=== PATIENT | female | born 1990 | race Caucasian/White ===

== ENCOUNTER 2023-10-23 19:39 | Emergency (ER) | payer MEDICAID ==
[~2023-10-23] VITALS: Ht 165.1 cm; Wt 85.0 kg
[2023-10-23 19:45] VITALS: BP 134/88; PULSE 72; RESP 16; TEMP 98.1; O2SAT 99
[2023-10-23] MEDS ORDERED: ONDANSETRON 4MG ODT PO ONE (20:15)
[2023-10-23] MEDS ORDERED: ACETAMINOPHEN 325MG TABLET PO ONE (20:15)
[2023-10-23 20:51] LABS: BASOPHILS % 0.4 % (0.0-2.0); EOSINOPHILS % 2.9 % (0.0-5.0); HEMATOCRIT. 41.5 % (36.0-48.0); HEMOGLOBIN. 13.9 g/dL (12.0-16.0); LYMPHOCYTES % 16.6 % (20.0-50.0); MEAN CORPUSCULAR HEMOGLOBIN 28.8 pg (28.0-32.0); MEAN CORPUSCULAR HGB CONC 33.3 g/dL (31.0-37.0); MEAN CORPUSCULAR VOLUME 86.4 fL (81.0-99.0); MEAN PLATELET VOLUME 9.3 fl (7.4-10.4); MONOCYTES % 4.8 % (2.0-8.0); NEUTROPHILS % 75.3 % (40.0-76.0); PLATELET 269 x1000/uL (130-400); RED BLOOD CELL COUNT 4.81 mill/uL (4.2-5.4); RED CELL DISTRIBUTION WIDTH 13.1 % (11.6-14.6); WHITE BLOOD COUNT 11.9 x1000/uL (4.5-11.0)
[2023-10-23 20:57] LABS: CHLORIDE 107 mEq/L (98-107); SODIUM 140 mEq/L (136-145)
[2023-10-23 20:59] LABS: CARBON DIOXIDE 26 mEq/L (21-32)
[2023-10-23 21:00] LABS: CALCIUM 9.1 mg/dL (8.7-10.4)
[2023-10-23 21:04] LABS: CREATININE 0.7 mg/dL (0.6-1.0); GLUCOSE 96 mg/dL (70-105)
[2023-10-23 21:05] LABS: ALANINE AMINOTRANSFERASE 20 IU/L (10-49); UREA NITROGEN BLOOD 8 mg/dL (9-23)
[2023-10-23 21:06] LABS: ALBUMIN 4.7 g/dL (3.2-4.8); ASPARTATE AMINOTRANSFERASE 19 IU/L (<34)
[2023-10-23 21:07] LABS: BILIRUBIN DIRECT 0.1 mg/dL (<=3.0); BILIRUBIN TOTAL 0.4 mg/dL (0.1-1.0); PROTEIN TOTAL 7.7 g/dL (6.0-8.3)
[2023-10-23 21:10] LABS: HCG SCREEN NEGATIVE
[2023-10-23] MEDS ORDERED: ONDA4TAB11 PO (22:17)
== END 2023-10-23 22:28 | disposition home or self-care (01) ==
LOC: ER 19:39
DX: R10.11 Right upper quadrant pain (principal); R11.2 Nausea with vomiting, unspecified
CPT/HCPCS: 36415; 76705; 80048; 80076; 84703; 85025; 99284